=== PATIENT | female | born 1955 | race American Indian/Alaskan Native ===

== ENCOUNTER 2019-03-27 08:59 | Emergency (ER) | payer MEDICARE ==
[2019-03-27] MEDS ORDERED: NORMODYNE IV ONE (09:45)
--- NOTE | 2019-03-27 10:11 | XRay Report ---
AP CHEST: HISTORY: Dyspnea AP view of the chest demonstrates a normal mediastinal and cardiac contour with clear lungs and normal bony and soft tissue structures. IMPRESSION: Unremarkable AP chest.
[2019-03-27 10:14] LABS: Basophils # (Auto) 0.1 K/mm3 (0.0-0.1); Basophils % (Auto) 1.6 % (0.0-1.8); Eosinophils # (Auto) 0.2 K/mm3 (0.0-0.4); Eosinophils % (Auto) 3.1 % (0.0-4.3); Hematocrit 43.1 % (30.3-42.9); Hemoglobin 14.2 gm/dl (10.1-14.3); Lymphocytes # (Auto) 2.4 K/mm3 (1.2-5.4); Lymphocytes % (Auto) 33.3 % (13.4-35.0); Mean Corpuscular HGB Conc 33 % (30-34); Mean Corpuscular Volume 86 fl (79-97); Monocytes # (Auto) 0.5 K/mm3 (0.0-0.8); Monocytes % (Auto) 7.3 % (0.0-7.3); Platelet Count 279 K/mm3 (140-440); Red Cell Distribution Width 13.4 % (13.2-15.2)
[2019-03-27 10:38] LABS: BUN/Creatinine Ratio 9; Blood Urea Nitrogen 10 mg/dL (7-17); Calcium 8.5 mg/dL (8.4-10.2); Hemolysis Index 13
[2019-03-27 10:39] LABS: Creatine Kinase MB 1.8 ng/mL (0.0-4.0)
[2019-03-27 10:41] LABS: INR 1.01 (0.87-1.13); Partial Thromboplastin Time 26.9 Sec. (24.2-36.6)
[2019-03-27 10:42] LABS: Alanine Aminotransferase 11 units/L (7-56); Albumin 3.8 g/dL (3.9-5)
[2019-03-27 10:46] LABS: Bilirubin,Direct < 0.2 mg/dL (0-0.2)
[2019-03-27] MEDS ORDERED: NORVASC PO ONE (10:48)
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
[2019-03-27 11:38] LABS: Bacteria,Urine 4+ /HPF (Negative); Bilirubin,Urine NEG (Negative); Blood,Urine SM (Negative); Color,Urine Yellow (Yellow); Mucus,Urine FEW /HPF; Urobilinogen,Urine < 2.0 mg/dL (<2.0)
[2019-03-27 11:42] LABS: Amphetamine Screen,Urine PRESUMPTIVE NEGATIVE; Benzodiazepines Screen,Urine PRESUMPTIVE NEGATIVE; Cannabinoid Screen,Urine PRESUMPTIVE NEGATIVE; Cocaine Screen,Urine PRESUMPTIVE NEGATIVE; Methadone Screen,Urine PRESUMPTIVE NEGATIVE; Opiate Screen,Urine PRESUMPTIVE NEGATIVE
[2019-03-27 13:11] VITALS: BP 168/111
== END 2019-03-27 13:12 | disposition home or self-care (01) ==
LOC: ED 08:59
DX: J20.9 Acute bronchitis, unspecified (principal); I10 Essential (primary) hypertension
CPT/HCPCS: 36415; 71045; 80048; 80076; 80307; 81001; 82550; 82553; 83735; 83880; 84484; 85025; 85610; 85730; 93005; 93010; 96374